=== PATIENT | female | born 1995 | race Caucasian/White ===

== ENCOUNTER 2019-03-30 23:33 | Inpatient (IN) | payer OTHER, MEDICAID, SELFPAY ==
[2019-03-30 23:44] VITALS: BP 127/80; PULSE 106; RESP 16; TEMP 36.6; O2SAT 95; BMI 18.9
--- NOTE | 2019-03-30 23:45 | ED.NAVMDI ---
HPI - Nausea/Vomiting/Diarrhea General Chief complaint: Nausea/Vomiting/Diarrhea Stated complaint: dehydrated, very little fluids for 3 days Time Seen by Provider: 03/30/19 23:39 Source: patient Mode of arrival: Ambulatory Limitations: no limitations History of Present Illness HPI Narrative: Patient is a 23-year-old female with history of ulcerative colitis and a J loop presenting with 3 days of nausea. She denies any real abdominal pain but can't keep fluids down. She can drink water but about 4 hours later she has vomits it up. She denies any abdominal distention she feels sweaty at times but no chills. She does not remember last bowel movement she thinks she is passing gas. She overall feels very weak noted to be tachycardic. MD complaint: nausea and vomiting Onset (ago): day(s) Description of Diarrhea: none Related Data Allergies Allergy/AdvReac Type Severity Reaction Status Date / Time Penicillins Allergy Verified 03/30/19 23:44 Review of Systems Review of Systems Narrative: GENERAL: Denies chills, fatigue, malaise, fever, sweats, travel HEENT: Denies sinus pain, ear pain, sore throat, difficulty swallowing, neck pain RESPIRATORY: Denies dyspnea, cough, wheezing, hemoptysis, sputum. CARDIOVASCULAR: Denies chest pain, palpitations, orthopnea, edema GASTROINTESTINAL: see HPI : Denies dysuria, frequency, incontinence, hematuria, urinary retention, flank pain. MUSCULOSKELETAL: Denies weakness, joint pain, or bony pain SKIN: No rash, no erythema, no pruritus NEUROLOGIC: Denies weakness, dizziness, headache, numbness, change in speech, confusion PSYCHIATRIC: No concerning psychosocial issues. 12 point review of systems is negative except for those stated above and HPI [facility] Medical History Ulcerative colitis (Acute) Surgical History (Updated 03/31/19 @ 01:56 by THI Resendez) History of colectomy (Acute) Social History household members: friend(s) Smoking Status: Never smoker Social History household members: friend(s) Smoking Status: Never smoker Exam Initial Vital Signs Initial Vital Signs: Vital Signs Temperature 97.8 F 03/30/19 23:44 Pulse Rate 106 H 03/30/19 23:44 Respiratory Rate 16 03/30/19 23:44 Blood Pressure 127/80 03/30/19 23:44 Pulse Oximetry 95 03/30/19 23:44 GENERAL: Week alert young female and in no acute distress. HEENT: Head atraumatic,EOMI, pupils reactive, face symmetric, dry mucous membranes CARDIOVASCULAR: Regular rate and rhythm without murmurs, rubs or gallops. RESPIRATORY: Breath sounds equal bilaterally, no wheezes rales or rhonchi. ABDOMEN: Soft, no distension minimal tenderness no guarding no rebound EXTREMITIES: Normal range of motion, no clubbing or edema. Neurovascularly intact NEUROLOGICAL: Alert and oriented x4.Normal gait and speech. Cranial nerves II through XII grossly intact. SKIN: Warm, dry, no laceration, no petechiae, no rashes or lesions. Course Orders Ordered: ED Orders 03/30/19 23:50 Complete Blood Count AUTO DIFF Stat Comprehensive Metabolic Panel Stat Lipase Stat Test Serum,Qual Stat 03/30/19 23:52 CT abdomen pelvis w con Stat Enoxaparin Sodium (Lovenox) 40 mg SUBCUT DAILY VINNIE Lactated Ringer's (Lactated Ringers) 1,000 mls @ 125 mls/hr IV CONT VINNIE Morphine Sulfate (Morphine) 2 mg IV Q4HR PRN PRN Reason: Pain, Moderate (4-6) Morphine Sulfate (Morphine) 4 mg IV Q4HR PRN PRN Reason: Pain, Severe (7-10) Naloxone HCl (Narcan) 0.2 mg IV Q2MIN PRN PRN Reason: Opiate Reversal Ondansetron HCl (Zofran) 4 mg IV Q6HR PRN PRN Reason: Nausea And Vomiting Discontinued Medications Sodium Chloride (Normal Saline 0.9%) 1,000 mls @ 1,000 mls/hr IV CONT VINNIE Last Infusion: 03/31/19 01:19 Dose: 0 mls/hr Documented by: Admin: 03/31/19 00:01 Dose: 1,000 mls/hr Documented by: LREED Sodium Chloride (Normal Saline 0.9%) 1,000 mls @ 125 mls/hr IV CONT VINNIE Last Admin: 03/31/19 01:51 Dose: Not Given Documented by: RLODILIAI Morphine Sulfate (Morphine) 4 mg IV NOW ONE Stop: 03/30/19 23:52 Last Admin: 03/31/19 00:00 Dose: 4 mg Documented by: DWIGHT Ondansetron HCl (Zofran) 4 mg IV NOW ONE Stop: 03/30/19 23:52 Last Admin: 03/31/19 00:00 Dose: 4 mg Documented by: DWIGHT Pantoprazole Sodium (Protonix) 40 mg IV NOW ONE Stop: 03/30/19 23:54 Last Admin: 03/31/19 00:00 Dose: 40 mg Documented by: DWIGHT Potassium Chloride (Potassium Chloride) 40 meq PO NOW ONE Stop: 03/31/19 00:50 Last Admin: 03/31/19 00:53 Dose: 40 meq Documented by: MEGA Vital Signs Vital signs: Vital Signs - 8 hr 03/30/19 23:44 03/31/19 00:13 03/31/19 01:12 Temperature 97.8 F Pulse Rate 106 H 87 81 Respiratory Rate 16 16 16 Blood Pressure 127/80 Blood Pressure [Right Arm] 130/92 H 122/83 Pulse Oximetry 95 95 95 MDM - Nausea/Vomiting/Diarrhea Lab Data Attestation: I reviewed the patient's lab results. Result diagrams: 03/30/19 23:50 03/30/19 23:50 Labs: Lab Results 03/30/19 03/30/19 03/30/19 Range/Units 23:50 23:50 23:50 WBC 12.7 H (4.5-11.0) X10^3/uL RBC 4.72 (4.0-5.2) X10^6/uL Hgb 13.7 (12.0-16.0) g/dL Hct 39.3 (36-46) % MCV 83.3 (80-100) fL MCH 29.1 (26-34) PG MCHC 34.9 (30-36) % RDW 14.7 (11.6-14.8) % Plt Count 700 H (150-400) X10^3/uL Neut % (Auto) 48.3 L (50-75) % Lymph % (Auto) 34.3 (25-40) % [place] % (Auto) 16.6 H (3-14) % Eos % (Auto) 0.1 L (2-4) % Baso % (Auto) 0.7 (0-2) % Neut # (Auto) 6100 (5489-2872) /uL Lymph # (Auto) 4400 (8029-0565) /uL [place] # (Auto) 2100 H (0-900) /uL Eos # (Auto) 0 (0-450) /uL Baso # (Auto) 100 (0-100) /uL Sodium 122 L (137-145) mmol/L Potassium 2.9 L (3.4-5.1) mmol/L Chloride 65 L* (98-107) mmol/L Carbon Dioxide 37 H (22-32) mmol/L BUN 57 H (7-17) mg/dL Creatinine 2.80 H (0.52-1.04) mg/dL Estimated GFR 20.9 L (>60) mL/min BUN/Creatinine Ratio 20.4 (6-22) Glucose 162 H (70-100) mg/dL Calcium 10.2 (8.4-10.2) mg/dL Magnesium (1.6-2.3) mg/dL Total Bilirubin 1.0 (0.2-1.3) mg/dL AST 41 H (14-36) IU/L ALT 33 (9-52) IU/L Alkaline Phosphatase 103 (38-126) U/L Total Protein 9.7 H* (6.3-8.2) g/dL Albumin 5.1 H (3.5-5.0) g/dL Globulin 4.6 H (1.7-4.1) g/dL Albumin/Globulin Ratio 1.1 (1.0-2.8) Lipase 171 (23-300) U/L Serum , Qual Negative (Negative) 03/30/19 Range/Units 23:50 WBC (4.5-11.0) X10^3/uL RBC (4.0-5.2) X10^6/uL Hgb (12.0-16.0) g/dL Hct (36-46) % MCV (80-100) fL MCH (26-34) PG MCHC (30-36) % RDW (11.6-14.8) % Plt Count (150-400) X10^3/uL Neut % (Auto) (50-75) % Lymph % (Auto) (25-40) % [place] % (Auto) (3-14) % Eos % (Auto) (2-4) % Baso % (Auto) (0-2) % Neut # (Auto) (3253-8606) /uL Lymph # (Auto) (2087-5704) /uL [place] # (Auto) (0-900) /uL Eos # (Auto) (0-450) /uL Baso # (Auto) (0-100) /uL Sodium (137-145) mmol/L Potassium (3.4-5.1) mmol/L Chloride (98-107) mmol/L Carbon Dioxide (22-32) mmol/L BUN (7-17) mg/dL Creatinine (0.52-1.04) mg/dL Estimated GFR (>60) mL/min BUN/Creatinine Ratio (6-22) Glucose (70-100) mg/dL Calcium (8.4-10.2) mg/dL Magnesium 2.6 H (1.6-2.3) mg/dL Total Bilirubin (0.2-1.3) mg/dL AST (14-36) IU/L ALT (9-52) IU/L Alkaline Phosphatase (38-126) U/L Total Protein (6.3-8.2) g/dL Albumin (3.5-5.0) g/dL Globulin (1.7-4.1) g/dL Albumin/Globulin Ratio (1.0-2.8) Lipase (23-300) U/L Serum , Qual (Negative) Point of Care Testing Test Results Negative Urine Dip Bedside Urine Glucose Negative Bedside Urine Bilirubin + 1 Bedside Urine Ketone - Negative Urine Specific [place] 1.025 Bedside Urine Occult Blood ++ Bedside Urine pH 6 Bedside Urine Protein ++ 100 Bedside Urine Urobilinogen +/- 1mg Bedside Urine Nitrite - Negative Bedside Urine Leukocytes - Negative Esterase MDM Narrative Medical decision making narrative: Patient's electrolytes are abnormal creatinine is 2.8, BUN 57 was significant dehydration. She is no longer vomiting in the ED. She was given IV contrast for her CT, (tech thought gfr was higher). I spoke with Maicol NESS updated on patient's symptoms test results agrees with inpatient admission Discharge Plan Departure Patient Disposition: Admitted As Inpatient Clinical Impression: Acute kidney injury, Acute hyponatremia, Acute hypokalemia Discharge Date/Time: 03/31/19 01:25 Admit Date/Time: 03/31/19 01:12 Admit Provider: Austin Milian
--- NOTE | 2019-03-30 23:52 | DI.CT.S_ITS ---
PROCEDURE: CT ABDOMEN PELVIS W CON INDICATIONS: vomiting , history of J pouch TECHNIQUE: After the administration of intravenous contrast, 5 mm thick sections acquired from the diaphragm to the symphysis. 5 mm coronal and sagittal reformats were acquired. For radiation dose reduction, the following was used: automated exposure control, adjustment of mA and/or kV according to patient size. COMPARISON: [facility], MR, MR ABD PELVIS W&WO CON, 11/18/2016, 12:31. FINDINGS: Image quality: Excellent. ABDOMEN: Lung bases: Lung bases are clear. Heart size is normal. Solid organs: Liver is normal in size and enhancement. Gallbladder is within normal limits. Biliary system is non dilated. Pancreas enhances normally. Spleen is normal in size and enhancement. No adrenal nodules. Kidneys demonstrate normal size and enhancement, without hydronephrosis. Peritoneum and bowel: Stomach and proximal small bowel are within normal limits. There is thickening of the distal small bowel just proximal to the J-pouch within the pelvis. No free fluid or air. Nodes and vessels: No retroperitoneal adenopathy. Multiple mildly prominent mesenteric lymph nodes within the pelvis are present. Aorta and inferior vena cava are normal in size. Miscellaneous: No ventral hernias. PELVIS: Genitourinary: Bladder wall thickness is normal. Miscellaneous: No inguinal hernias or adenopathy. Bones: No suspicious bony lesions. No vertebral body compression fractures. IMPRESSION: Distal small bowel thickening within the pelvis, indicating ischemia, infection or inflammation. Reactive mesenteric lymph node enlargement is present. Concordant with preliminary interpretation. Dictated by: Mahnaz Mckeon M.D. on 03/31/2019 at 8:27 Approved by: Mahnaz Mckeon M.D. on 03/31/2019 at 8:37
[2019-03-31] VITALS (11 sets, daily range): BP systolic 104–142; BP diastolic 59–92; PULSE 73–91; RESP 16–18; TEMP 36.6–37.4; O2SAT 95–100; BMI 18.9
[2019-03-31] LABS: Add Manual Diff / Slide Review NO; Basophils Absolute Auto 100 /uL (0-100); Basophils Percent Auto 0.7 % (0-2); Eosinophils Absolute Auto 0 /uL (0-450); Eosinophils Percent Auto 0.1 % (2-4); Hematocrit 39.3 % (36-46); Hemoglobin 13.7 g/dL (12.0-16.0); Lymphocytes Absolute Auto 4400 /uL (1100-4500); Lymphocytes Percent Auto 34.3 % (25-40); Mean Corpuscular HGB Conc 34.9 % (30-36); Mean Corpuscular Hemoglobin 29.1 PG (26-34); Mean Corpuscular Volume 83.3 fL (80-100); Monocytes Absolute Auto 2100 /uL (0-900); Monocytes Percent Auto 16.6 % (3-14); Neutrophils Absolute Auto 6100 /uL (1500-7000); Neutrophils Percent Auto 48.3 % (50-75); Platelet Count 700 X10^3/uL (150-400); Red Blood Cell Count 4.72 X10^6/uL (4.0-5.2); Red Cell Distribution Width 14.7 % (11.6-14.8); White Blood Cell Count 12.7 X10^3/uL (4.5-11.0)
[2019-03-31] MEDS: MORPHINE 4 MG/ML INJ IV
[2019-03-31] MEDS: ONDANSETRON 4 MG/2 ML INJ IV
[2019-03-31] MEDS: PANTOPRAZOLE 40 MG VIAL IV
[2019-03-31] MEDS: SODIUM CHLORIDE 0.9% 1,000 ML 1000 ML IV (00:01)
[2019-03-31 00:10] LABS: Pregnancy Test Serum,Qual Negative (Negative)
[2019-03-31 00:14] LABS: Alanine Aminotransferase 33 IU/L (9-52); Albumin 5.1 g/dL (3.5-5.0); Albumin Globulin Ratio 1.1 (1.0-2.8); Alkaline Phosphatase 103 U/L (38-126); Aspartate Aminotransferase 41 IU/L (14-36); BUN Creatinine Ratio 20.4 (6-22); Blood Urea Nitrogen 57 mg/dL (7-17); Calcium 10.2 mg/dL (8.4-10.2); Carbon Dioxide 37 mmol/L (22-32); Estimated Glomerular Filt Rate 20.9 mL/min (>60); Globulin 4.6 g/dL (1.7-4.1); Glucose 162 mg/dL (70-100); HEMOLYSIS < 15 (0-50); Lipase 171 U/L (23-300); Potassium 2.9 mmol/L (3.4-5.1); Sodium 122 mmol/L (137-145)
[2019-03-31 00:38] LABS: Chloride 65 mmol/L (98-107)
[2019-03-31 00:39] LABS: Total Protein 9.7 g/dL (6.3-8.2)
--- NOTE | 2019-03-31 00:44 | PC.NURSE ---
Patient resting quietly in room. Friends at bedside. patient able to drift off to sleep.
[2019-03-31] MEDS: POTASSIUM CHLORIDE 20 MEQ/15 ML UDC 40 MEQ PO (00:53)
[2019-03-31 01:33] LABS: Magnesium 2.6 mg/dL (1.6-2.3)
--- NOTE | 2019-03-31 01:42 | P.HP_ITS ---
History of Present Illness History of Present Illness Date Patient Seen: 03/31/19 Time Patient Seen: 01:42 Chief complaint: dehydrated, very little fluids for 3 days Narrative: Ms. Deepika Stroud is a 23-year-old female with history of ulcerative colitis status post colectomy with J-pouch reconstruction who presents to the ER with severe dehydration the patient reports having 3 days of nausea and vomiting and has been unable to keep food or fluids down. She describes her emesis is greenish in color without blood. She has associated diarrhea and states that s he has this frequently with her J-pouch reporting stooling approximately 5-8 times daily. She has associated symptoms of weakness and also has had complaints of a cough productive for green sputum with runny nose and sore throat. She denies recent sick contacts, travel out of country or questionable food or water sources. She denies complaints of fevers or chills headaches or dizziness. She denies chest pain or palpitations has had no shortness of breath or wheezing. She reports no abdominal pain or complaints of dysuria. She provides distal history of intermittent numbness and tingling and also has a history of PTSD for which she takes fluoxetine. Upon arrival in the ER the patient was found to be afebrile with temperature 97.8?, tachycardic at 1:06 a.m., blood pressure 127/80, respirations 16 saturating 95% on room air. On laboratory analysis the patient has with elevated white count of 12.7, hemoglobin of 13.7 hematocrit of 39.3 and platelets of 700. On chemistry she is hyponatremic at 1:22 a.m., hypokalemic at 2.9, chloride is low at 65 and alkalotic with a CO of 37. She has a BUN of 57 and creatinine of 2.8. Her nonfasting glucose is 162. The patient did undergo CT scan and unfortunately the patient did receive contrast with impaired renal function with an EGFR of 20.9. The exam found no significant pathology other than thickening of the patient's J-pouch. She has a total bilirubin of 1.0 and elevated AST at 41. Her lipase normal 171 and serum is negative. Patient History Medical History Ulcerative colitis (Acute) Surgical History (Updated 03/31/19 @ 01:56 by Austin Maicol, RESORT MANAGER) History of colectomy (Acute) Social History household members: friend(s) Smoking Status: Never smoker Family & Social History Family history unavailable: Yes (Patient is adopted and has no knowledge of her biological family.) Safety & Behavioral: Feels Safe in Current Yes Environment Been Physically Hurt or No Threatened By a Person Tobacco & Substance use: Smoking Status Unknown if ever smoked alcohol intake frequency holiday/special occasion Substance Use Type does not use Comment: The patient is currently and lives in a single family home with friends. She is adopted and has no knowledge of her parents or family health history. Occupation: The patient does not work. Smoking: The patient does not use tobacco products. Alcohol: The patient does not consume alcohol. Substance use: The patient endorses smoking marijuana 3 times daily. Advanced directives: Patient has no formal advanced directives but in direct discussion states her desire to be FULL CODE. She designates her friend Christi Mccormick to be her surrogate decision maker. Meds Home Medications and Allergies Home Medications Medication Instructions Recorded Confirmed Type fluoxetine 10 mg PO DAILY 03/31/19 03/31/19 History Allergies Allergy/AdvReac Type Severity Reaction Status Date / Time Penicillins Allergy Verified 03/30/19 23:44 Review of Systems Review of Systems ROS Unobtainable: All systems reviewed & are unremarkable except as noted in HPI and below Exam Vital Signs (past 8 hours): - 03/30/19 23:44 03/31/19 00:13 03/31/19 01:12 Temperature 97.8 F Pulse Rate 106 H 87 81 Respiratory Rate 16 16 16 Blood Pressure 127/80 Blood Pressure [Right Arm] 130/92 H 122/83 Pulse Oximetry 95 95 95 Oxygen Delivery Method Room Air Narrative Exam Narrative: GENERAL APPEARANCE: well developed, well nourished, laying supine in bed in no acute distress. HEENT: Normocephalic, wearing glasses, PERRLA, conjunctiva clear, EOMs intact without nystagmus, no sinus tenderness to percussion, no rhinorrhea, mucous membranes are moist and pink without lesions or exudate. NECK/THYROID: neck supple, no JVD,no thyromegaly, trachea midline. LYMPH NODES: no cervical or supraclavicular lymphadenopathy. SKIN: warm and dry, no suspicious lesions, no rashes, good turgor. HEART: regular rate and rhythm, S1-S2, no murmur, no rubs or gallops, brisk capillary refill, no edema LUNGS: clear to auscultation bilaterally, no coarseness crackles or wheezing, went cough present CHEST: Symmetrical movement, no accessory muscle use, mild nonfocal chest wall pain to AP and lateral compression. ABDOMEN: Soft, no distention, patient states no pain but slight grimace on palpation bilateral upper quadrants, no guarding or peritoneal signs, no organomegaly, no suprapubic tenderness, active bowel tones. BACK: Normal curvature, nontender to palpation, positive right CVA pain on percussion EXTREMITIES: moves all extremities, strength is 5/5 and symmetrical, no deformities or joint effusions. NEUROLOGIC: AAO x4, no focal neurologic deficits, cranial nerves II-XII grossly intact, sensation intact to light touch, hearing grossly normal to speech. PSYCH: alert, flat affect, impoverished speech, fair eye contact. Objective Labs Result Diagrams: 03/30/19 23:50 03/30/19 23:50 Labs: Laboratory Results - last 24 hr 03/30/19 03/30/19 03/30/19 23:50 23:50 23:50 WBC 12.7 H RBC 4.72 Hgb 13.7 Hct 39.3 MCV 83.3 MCH 29.1 MCHC 34.9 RDW 14.7 Plt Count 700 H Neut % (Auto) 48.3 L Lymph % (Auto) 34.3 [place] % (Auto) 16.6 H Eos % (Auto) 0.1 L Baso % (Auto) 0.7 Neut # (Auto) 6100 Lymph # (Auto) 4400 [place] # (Auto) 2100 H Eos # (Auto) 0 Baso # (Auto) 100 Sodium 122 L Potassium 2.9 L Chloride 65 L* Carbon Dioxide 37 H BUN 57 H Creatinine 2.80 H Estimated GFR 20.9 L BUN/Creatinine Ratio 20.4 Glucose 162 H Calcium 10.2 Magnesium Total Bilirubin 1.0 AST 41 H ALT 33 Alkaline Phosphatase 103 Total Protein 9.7 H* Albumin 5.1 H Globulin 4.6 H Albumin/Globulin Ratio 1.1 Lipase 171 Serum , Qual Negative 03/30/19 23:50 WBC RBC Hgb Hct MCV MCH MCHC RDW Plt Count Neut % (Auto) Lymph % (Auto) [place] % (Auto) Eos % (Auto) Baso % (Auto) Neut # (Auto) Lymph # (Auto) [place] # (Auto) Eos # (Auto) Baso # (Auto) Sodium Potassium Chloride Carbon Dioxide BUN Creatinine Estimated GFR BUN/Creatinine Ratio Glucose Calcium Magnesium 2.6 H Total Bilirubin AST ALT Alkaline Phosphatase Total Protein Albumin Globulin Albumin/Globulin Ratio Lipase Serum , Qual Assessment & Plan Assessment & Plan narrative: This is a 23-year-old female patient who was admitted to the hospital related to severe electrolyte derangement and acute kidney injury. 1. Acute intractable nausea vomiting, present on admission, active. -patient presents with acute dehydration related to intractable nausea vomiting, qSOFA score is 0 mildly elevated WBCs at 12.7. -the patient presents with multiple potential etiologies -Viral syndrome, patient with body aches nausea vomiting cough and sore throat, will obtain a respiratory panel. -intra-abdominal process, CT scan finds circumferential wall thickening of small bowel leading to including portion of the J-pouch. -will obtain procalcitonin and GI PCR. -possible pyelonephritis with acute right CVA tenderness on percussion, obtaining urinalysis. 2. Acute kidney injury, present on admission, active -patient is acutely dehydrated clinically and by laboratory analysis. -no baseline creatinine is available however patient reports no history of kidney problems and presents today with a creatinine of 2.8. -this is believed to be pre renal related to dehydration, patient will be aggressively rehydrated. 3. Acute hyponatremia, present on admission, active -sodium is 122 on admission -likely related to dehydration, will follow sodium level and replete cautiously as the patient is rehydrated. -will follow chemistries closely 4. Acute hypokalemia, present on admission, active -potassium upon arrival to the ER was 2.9. The patient received 40 mEq of potassium p.o. while in the ER. -additional 40 mEq potassium will be given IV -will follow with serial electrolytes. 5. Posttraumatic stress disorder, chronic, presumed stable -patient is somewhat withdrawn with flat affect and a however speech, unwilling to discuss triggers or symptoms. -continue home regimen of fluoxetine 10 mg daily. -patient smokes marijuana 3 times daily, will monitor the patient to assess need for adjunct therapy. The patient is admitted to the hospital due to severity of symptoms and potential for complications adverse repeat events related to electrolyte derangement and acute kidney injury as well as continued investigation for infectious process. Patient will be admitted as an inpatient with expected length of stay to be greater than 2 midnights. Scores GCS [place] coma scale eye opening: Spontaneous [place] coma scale verbal response: Orientated [place] coma scale motor response: Obey commands [place] coma scale total score: 15
[2019-03-31 02:03] LABS: Procalcitonin 0.33 ng/mL (<0.5)
--- NOTE | 2019-03-31 02:14 | PC.ADMIT ---
Addendum entered by Oanh Torres R.N. 03/31/19 03:51: Respiratory panel positive for rhinovirus, per hospital policy pt is put on Droplet Precautions. Original Note: [address] Admission Note: The patient,Annemarie Stroud,23 y/o, was given written information regarding hospital policies, unit procedures and contact persons. Patient's smoking status: Never smoker. Vital Signs - 8 hr 03/30/19 23:44 03/31/19 00:13 03/31/19 01:12 Temperature 97.8 F Pulse Rate 106 H 87 81 Respiratory Rate 16 16 16 Blood Pressure 127/80 Blood Pressure [Right Arm] 130/92 H 122/83 Pulse Oximetry 95 95 95 Pt arrived on floor accompanied by ED RN, sister Christi, and friend Seth. Pt transferred herself to bed, axox3, able to make needs known. VS notable for tachycardia, respiratory for acute productive cough. Skin is intact, sat of 95% on RA. Respiratory panel completed d/t nature of illness and recent cough, also need a U/A and stool sample as well. Pt reports that she occasionally has fecal incontinence and does not pass gas d/t her anatomy r/t j pouch. Pt reports recent 15# weight loss, reflexed dietary consult. Pt is a moderate fall risk, bed alarm on and functioning, pt connected to IV fluids in left hand and SCDs on and functioning. Will continue to monitor.
[2019-03-31] MEDS: LACTATED RINGERS 1,000 ML 125 ML IV (02:19)
[2019-03-31] MEDS: POTASSIUM CHLORIDE 40 MEQ in SODIUM CHLORIDE 0.9% 500 ML 130 ML IV (02:28)
[2019-03-31 03:34] LABS: Adenovirus Not Detected (Not Detect); Bordetella pertussis Not Detected (Not Detect); Chlamydophila pneumoniae Not Detected (Not Detect); Coronavirus 229E Not Detected (Not Detect); Coronavirus HKU1 Not Detected (Not Detect); Coronavirus NL 63 Not Detected (Not Detect); Coronavirus OC43 Not Detected (Not Detect); Human Metapneumovirus Not Detected (Not Detect); Human Rhinovirus/Enterovirus Detected (Not Detect); Influenza A Not Detected (Not Detect); Influenza B Not Detected (Not Detect); Mycoplasma pneumoniae Not Detected (Not Detect); Parainfluenza Virus 1 Not Detected (Not Detect); Parainfluenza Virus 2 Not Detected (Not Detect); Parainfluenza Virus 3 Not Detected (Not Detect); Parainfluenza Virus 4 Not Detected (Not Detect); Respiratory Syncytial Virus Not Detected (Not Detect)
[2019-03-31 06:31] LABS: Add Manual Diff / Slide Review NO; Basophils Absolute Auto 0 /uL (0-100); Basophils Percent Auto 0.2 % (0-2); Eosinophils Absolute Auto 0 /uL (0-450); Eosinophils Percent Auto 0.3 % (2-4); Hematocrit 32.2 % (36-46); Hemoglobin 11.4 g/dL (12.0-16.0); Lymphocytes Absolute Auto 3200 /uL (1100-4500); Mean Corpuscular HGB Conc 35.5 % (30-36); Mean Corpuscular Hemoglobin 29.6 PG (26-34); Mean Corpuscular Volume 83.4 fL (80-100); Monocytes Absolute Auto 1700 /uL (0-900); Monocytes Percent Auto 17.1 % (3-14); Neutrophils Absolute Auto 5000 /uL (1500-7000); Neutrophils Percent Auto 50.4 % (50-75); Platelet Count 507 X10^3/uL (150-400); Red Blood Cell Count 3.86 X10^6/uL (4.0-5.2); Red Cell Distribution Width 14.7 % (11.6-14.8)
[2019-03-31 06:33] LABS: BUN Creatinine Ratio 20.9 (6-22); Blood Urea Nitrogen 48 mg/dL (7-17); Carbon Dioxide 36 mmol/L (22-32); Chloride 77 mmol/L (98-107); Estimated Glomerular Filt Rate 26.3 mL/min (>60); Glucose 100 mg/dL (70-100); HEMOLYSIS < 15 (0-50); Potassium 3.7 mmol/L (3.4-5.1); Sodium 126 mmol/L (137-145)
[2019-03-31 06:35] LABS: Appearance Urine UA CLEAR; Bilirubin Urine UA NEGATIVE (NEGATIVE); Color Urine UA YELLOW; Glucose Urine UA NEGATIVE (Negative); Ketones Urine UA NEGATIVE (NEGATIVE); Leukocyte Esterase Urine UA NEGATIVE (NEGATIVE); Nitrite Urine UA NEGATIVE (Negative); Occult Blood Urine UA 2+ (Negative); Protein Urine UA TRACE (Negative); Specific Gravity Urine UA <=1.005 (1.000-1.035); Urobilinogen Urine UA 0.2 E.U./dL (0.2)
[2019-03-31 06:38] LABS: pH Urine UA 7.5 (4.5-8.0)
[2019-03-31 06:41] LABS: Bacteria Urine Few (2-10); Culture Indicated Urine Cult Not Indicated; RBC Urine 0-1/HPF (0-5/HPF); Squamous Epithelial Cell Urine 0-1 /HPF (0-5/HPF); WBC Urine 0-1/HPF (0-5/HPF)
[2019-03-31 06:56] LABS: Procalcitonin 0.21 ng/mL (<0.5)
[2019-03-31] MEDS: LORazepam 0.5 MG TABLET 0.25 MG PO ×2 (07:22→20:49)
[2019-03-31 08:11] LABS: BUN Creatinine Ratio 22.3 (6-22); Blood Urea Nitrogen 49 mg/dL (7-17); Carbon Dioxide 34 mmol/L (22-32); Chloride 78 mmol/L (98-107); Estimated Glomerular Filt Rate 27.7 mL/min (>60); Glucose 100 mg/dL (70-100); HEMOLYSIS 18 (0-50); Potassium 3.8 mmol/L (3.4-5.1); Sodium 126 mmol/L (137-145)
[2019-03-31] MEDS: LACTATED RINGERS 1,000 ML 100 ML IV (10:48)
[2019-03-31] MEDS: FLUoxetine 10 MG CAPSULE PO (10:48)
[2019-03-31] MEDS: CIPROFLOXACIN 400 MG/200 ML PIGGYBACK 200 MG IV ×2 (10:48→17:55)
--- NOTE | 2019-03-31 12:00 | DIET.PN ---
Dietary Progress Note Assessment: Ms. Stroud was assessed as high risk for malnutrition r/t recent N/V and dehydration for the last several days. She reports recent weight loss. She is 2 years S/P colectomy w/ J pouch. Medical records note intake of marijuana approx 3x/day. Reports no dietary restrictions other than low fiber. States she was instructed to follow a high protein/high sodium diet with high intake of junk foods since her surgery. States she eats all sources of animal protein, but diet primarily includes chips of all types, gatorade and other fluids w/ electrolytes. HT: 180.34cm WT: 61kg UBW: 64kg BMI: 18.8 Labs: Hgb: 11.4 Hct: 32.2 Na: 126 K: 2.9 Cr: 2.2 eGFR: 27.7 Alb: 5.1 MNA: 4 (malnutrition) [place]: 19 Nutrition Diagnosis: Severe acute malnutrition r/t alteration in GI tract structure aeb GI symptoms N/V >1 week, energy intake <50% >5 days, unintentional weight loss of 4.7% (reports 15 lb weight loss) in >1 mo, excessive consumption of substance (marijuana), alterations in GI structure effecting nutrition intake. Interventions: 1. Discussed pt normal dietary intake. Recommended pt aim to increase fluid intake from less caloric dense beverages and decrease junk food consumption. 2. Discussed low fiber nutrition therapy. Provided list of foods to avoid, moderate, and increase. 3. Discussed slowly increasing fiber intake by incorporating small amounts of fruits/vegetable into meal plan. Diet Order: Clear Liquid Monitoring/Evaluations: Wt, Diet advancement/tolerance. Provided resources and my contact information for any immediate questions or concerns.
[2019-03-31 13:11] LABS: Adenovirus F 40/41 Not Detected (Not Detect); Astrovirus Not Detected (Not Detect); Campylobacter Not Detected (Not Detect); Clostridium difficile toxin AB Not Detected (Not Detect); Cryptosporidium Not Detected (Not Detect); Cyclospora cayetanensis Not Detected (Not Detect); Entamoeba histolytica Not Detected (Not Detect); Enteroaggregative E.coli Not Detected (Not Detect); Enteropathogenic E.coli Detected (Not Detect); Enterotoxigenic E.coli It/st Not Detected (Not Detect); Giardia lamblia Not Detected (Not Detect); Norovirus GI/GII Not Detected (Not Detect); Plesiomonsa shigelloides Not Detected (Not Detect); Rotavirus A Not Detected (Not Detect); Salmonella Not Detected (Not Detect); Shiga-like toxin-prod E.coli Not Detected (Not Detect); Shigella/Enteroinvasive E.coli Not Detected (Not Detect); Vibrio Not Detected (Not Detect); Vibrio cholerae Not Detected (Not Detect); Yersinia enterocolitica Not Detected (Not Detect)
[2019-03-31] MEDS: SODIUM CHLORIDE 0.9% 1,000 ML 75 ML IV (17:55)
--- NOTE | 2019-03-31 19:54 | P.PN_ITS ---
Subjective Subjective Date Patient Seen: 03/31/19 Time Patient Seen: 11:00 Interval history: Patient was seen and evaluated today. I agree with H&P by THI Resendez. She is admitted with hyponatremia and hypokalemia. Her hyponatremia improved today slightly to 126 and her creatinine improved as well to 2.3. Her GI panel came back positive for EPEC, she was started on Cipro for possible urinary source however her urine was negative. However Cipro can be used for severe cases of EPEC requiring hospitalization for volume depletion as this patient had. She will remain on ciprofloxacin for a 3-5 day course depending on how her symptoms improve. Her sodium is correcting appropriately and will continue follow. She stopped improving on LR, and was switched to normal saline this afternoon. Exam Vital Signs (past 8 hours): - 03/31/19 12:00 03/31/19 15:55 03/31/19 18:52 Temperature 97.9 F 98.8 F Pulse Rate 75 78 Respiratory Rate 16 18 Blood Pressure 127/87 113/69 Pulse Oximetry 99 98 98 Oxygen Delivery Method Room Air Oxygen Flow Rate 0 Objective Labs Result Diagrams: 03/31/19 06:10 03/31/19 06:10 Labs: Laboratory Results - last 24 hr 03/30/19 03/30/19 03/30/19 00:50 23:50 23:50 WBC 12.7 H RBC 4.72 Hgb 13.7 Hct 39.3 MCV 83.3 MCH 29.1 MCHC 34.9 RDW 14.7 Plt Count 700 H Neut % (Auto) 48.3 L Lymph % (Auto) 34.3 [place] % (Auto) 16.6 H Eos % (Auto) 0.1 L Baso % (Auto) 0.7 Neut # (Auto) 6100 Lymph # (Auto) 4400 [place] # (Auto) 2100 H Eos # (Auto) 0 Baso # (Auto) 100 Sodium Potassium Chloride Carbon Dioxide BUN Creatinine Estimated GFR BUN/Creatinine Ratio Glucose Calcium Magnesium Total Bilirubin AST ALT Alkaline Phosphatase Total Protein Albumin Globulin Albumin/Globulin Ratio Lipase Procalcitonin 0.33 Serum , Qual Negative Urine Color Urine Appearance Urine pH Ur Specific [place] Urine Protein Urine Glucose (UA) Urine Ketones Urine Occult Blood Urine Nitrate Urine Bilirubin Urine Urobilinogen Ur Leukocyte Esterase Urine RBC Urine WBC Ur Squamous Epith Cells Urine Bacteria Ur Culture Indicated? Stl C. cayetanensis PCR Stool Rotavirus (PCR) Stool Adenovirus (PCR) Stool Astrovirus (PCR) Stool Cryptosporidium PCR Stl E.coli Shiga Tox PCR St Sh/Enteroin Ecoli PCR Stool E coli O157 PCR Stl Enterotoxigenic E PCR Stool EPEC (PCR) Stl E. histolytica PCR Stool Giardia Lamblia PCR Stl P. shigelloides PCR St Y.enterocolitica PCR Stool Vibrio (PCR) Stl Vibrio cholerae PCR Stl Enteroaggr Ecoli PCR Stl Norovirus GI/GII PCR Chlamy pneumoniae PCR Adenovirus (PCR) B.parapertussis DNA PCR Campylobacter (PCR) C. difficile Tox (PCR) Coronavirus OC43 (PCR) Coronavirus HKU1 (PCR) Coronavirus 229E (PCR) Coronavirus NL63 (PCR) Human Metapneumovir PCR Influenza Type A (PCR) Influenza Type B (PCR) M. pneumoniae (PCR) Parainfluenza 1 (PCR) Parainfluenza 2 (PCR) Parainfluenza 3 (PCR) Parainfluenza 4 (PCR) RSV (PCR) Entero/Rhino (PCR) Salmonella (PCR) 03/30/19 03/30/19 03/31/19 23:50 23:50 02:07 WBC RBC Hgb Hct MCV MCH MCHC RDW Plt Count Neut % (Auto) Lymph % (Auto) [place] % (Auto) Eos % (Auto) Baso % (Auto) Neut # (Auto) Lymph # (Auto) [place] # (Auto) Eos # (Auto) Baso # (Auto) Sodium 122 L Potassium 2.9 L Chloride 65 L* Carbon Dioxide 37 H BUN 57 H Creatinine 2.80 H Estimated GFR 20.9 L BUN/Creatinine Ratio 20.4 Glucose 162 H Calcium 10.2 Magnesium 2.6 H Total Bilirubin 1.0 AST 41 H ALT 33 Alkaline Phosphatase 103 Total Protein 9.7 H* Albumin 5.1 H Globulin 4.6 H Albumin/Globulin Ratio 1.1 Lipase 171 Procalcitonin Serum , Qual Urine Color Urine Appearance Urine pH Ur Specific [place] Urine Protein Urine Glucose (UA) Urine Ketones Urine Occult Blood Urine Nitrate Urine Bilirubin Urine Urobilinogen Ur Leukocyte Esterase Urine RBC Urine WBC Ur Squamous Epith Cells Urine Bacteria Ur Culture Indicated? Stl C. cayetanensis PCR Stool Rotavirus (PCR) Stool Adenovirus (PCR) Stool Astrovirus (PCR) Stool Cryptosporidium PCR Stl E.coli Shiga Tox PCR St Sh/Enteroin Ecoli PCR Stool E coli O157 PCR Stl Enterotoxigenic E PCR Stool EPEC (PCR) Stl E. histolytica PCR Stool Giardia Lamblia PCR Stl P. shigelloides PCR St Y.enterocolitica PCR Stool Vibrio (PCR) Stl Vibrio cholerae PCR Stl Enteroaggr Ecoli PCR Stl Norovirus GI/GII PCR Chlamy pneumoniae PCR Not detected Adenovirus (PCR) Not detected B.parapertussis DNA PCR Not detected Campylobacter (PCR) C. difficile Tox (PCR) Coronavirus OC43 (PCR) Not detected Coronavirus HKU1 (PCR) Not detected Coronavirus 229E (PCR) Not detected Coronavirus NL63 (PCR) Not detected Human Metapneumovir PCR Not detected Influenza Type A (PCR) Not detected Influenza Type B (PCR) Not detected M. pneumoniae (PCR) Not detected Parainfluenza 1 (PCR) Not detected Parainfluenza 2 (PCR) Not detected Parainfluenza 3 (PCR) Not detected Parainfluenza 4 (PCR) Not detected RSV (PCR) Not detected Entero/Rhino (PCR) Detected H Salmonella (PCR) 03/31/19 03/31/19 03/31/19 06:10 06:10 06:10 WBC 10.0 RBC 3.86 L Hgb 11.4 L Hct 32.2 L MCV 83.4 MCH 29.6 MCHC 35.5 RDW 14.7 Plt Count 507 H Neut % (Auto) 50.4 Lymph % (Auto) 32.0 [place] % (Auto) 17.1 H Eos % (Auto) 0.3 L Baso % (Auto) 0.2 Neut # (Auto) 5000 Lymph # (Auto) 3200 [place] # (Auto) 1700 H Eos # (Auto) 0 Baso # (Auto) 0 Sodium 126 L Potassium 3.7 Chloride 77 L Carbon Dioxide 36 H BUN 48 H Creatinine 2.30 H Estimated GFR 26.3 L BUN/Creatinine Ratio 20.9 Glucose 100 Calcium 9.0 Magnesium Total Bilirubin AST ALT Alkaline Phosphatase Total Protein Albumin Globulin Albumin/Globulin Ratio Lipase Procalcitonin 0.21 Serum , Qual Urine Color Urine Appearance Urine pH Ur Specific [place] Urine Protein Urine Glucose (UA) Urine Ketones Urine Occult Blood Urine Nitrate Urine Bilirubin Urine Urobilinogen Ur Leukocyte Esterase Urine RBC Urine WBC Ur Squamous Epith Cells Urine Bacteria Ur Culture Indicated? Stl C. cayetanensis PCR Stool Rotavirus (PCR) Stool Adenovirus (PCR) Stool Astrovirus (PCR) Stool Cryptosporidium PCR Stl E.coli Shiga Tox PCR St Sh/Enteroin Ecoli PCR Stool E coli O157 PCR Stl Enterotoxigenic E PCR Stool EPEC (PCR) Stl E. histolytica PCR Stool Giardia Lamblia PCR Stl P. shigelloides PCR St Y.enterocolitica PCR Stool Vibrio (PCR) Stl Vibrio cholerae PCR Stl Enteroaggr Ecoli PCR Stl Norovirus GI/GII PCR Chlamy pneumoniae PCR Adenovirus (PCR) B.parapertussis DNA PCR Campylobacter (PCR) C. difficile Tox (PCR) Coronavirus OC43 (PCR) Coronavirus HKU1 (PCR) Coronavirus 229E (PCR) Coronavirus NL63 (PCR) Human Metapneumovir PCR Influenza Type A (PCR) Influenza Type B (PCR) M. pneumoniae (PCR) Parainfluenza 1 (PCR) Parainfluenza 2 (PCR) Parainfluenza 3 (PCR) Parainfluenza 4 (PCR) RSV (PCR) Entero/Rhino (PCR) Salmonella (PCR) 03/31/19 03/31/19 03/31/19 06:10 06:20 11:46 WBC RBC Hgb Hct MCV MCH MCHC RDW Plt Count Neut % (Auto) Lymph % (Auto) [place] % (Auto) Eos % (Auto) Baso % (Auto) Neut # (Auto) Lymph # (Auto) [place] # (Auto) Eos # (Auto) Baso # (Auto) Sodium 126 L Potassium 3.8 Chloride 78 L Carbon Dioxide 34 H BUN 49 H Creatinine 2.20 H Estimated GFR 27.7 L BUN/Creatinine Ratio 22.3 H Glucose 100 Calcium 9.0 Magnesium Total Bilirubin AST ALT Alkaline Phosphatase Total Protein Albumin Globulin Albumin/Globulin Ratio Lipase Procalcitonin Serum , Qual Urine Color Yellow Urine Appearance Clear Urine pH 7.5 Ur Specific [place] <=1.005 Urine Protein Trace H Urine Glucose (UA) Negative Urine Ketones Negative Urine Occult Blood 2+ H Urine Nitrate Negative Urine Bilirubin Negative Urine Urobilinogen 0.2 Ur Leukocyte Esterase Negative Urine RBC 0-1/hpf Urine WBC 0-1/hpf Ur Squamous Epith Cells 0-1 /hpf Urine Bacteria Few (2-10) H Ur Culture Indicated? Cult not indicated Stl C. cayetanensis PCR Not detected Stool Rotavirus (PCR) Not detected Stool Adenovirus (PCR) Not detected Stool Astrovirus (PCR) Not detected Stool Cryptosporidium PCR Not detected Stl E.coli Shiga Tox PCR Not detected St Sh/Enteroin Ecoli PCR Not detected Stool E coli O157 PCR Not detected Stl Enterotoxigenic E PCR Not detected Stool EPEC (PCR) Detected H Stl E. histolytica PCR Not detected Stool Giardia Lamblia PCR Not detected Stl P. shigelloides PCR Not detected St Y.enterocolitica PCR Not detected Stool Vibrio (PCR) Not detected Stl Vibrio cholerae PCR Not detected Stl Enteroaggr Ecoli PCR Not detected Stl Norovirus GI/GII PCR Not detected Chlamy pneumoniae PCR Adenovirus (PCR) B.parapertussis DNA PCR Campylobacter (PCR) Not detected C. difficile Tox (PCR) Not detected Coronavirus OC43 (PCR) Coronavirus HKU1 (PCR) Coronavirus 229E (PCR) Coronavirus NL63 (PCR) Human Metapneumovir PCR Influenza Type A (PCR) Influenza Type B (PCR) M. pneumoniae (PCR) Parainfluenza 1 (PCR) Parainfluenza 2 (PCR) Parainfluenza 3 (PCR) Parainfluenza 4 (PCR) RSV (PCR) Entero/Rhino (PCR) Salmonella (PCR) Not detected Quality VTE Deep Vein Thrombosis/Pulmonary Embolism Present on Admission: No
[2019-04-01] VITALS (8 sets, daily range): BP systolic 107–113; BP diastolic 53–75; PULSE 75–96; RESP 14–18; TEMP 36.5–37.3; O2SAT 95–100
[2019-04-01 05:35] LABS: Add Manual Diff / Slide Review NO; Basophils Absolute Auto 0 /uL (0-100); Basophils Percent Auto 0.4 % (0-2); Eosinophils Absolute Auto 0 /uL (0-450); Eosinophils Percent Auto 0.4 % (2-4); Hematocrit 32.6 % (36-46); Hemoglobin 11.3 g/dL (12.0-16.0); Lymphocytes Absolute Auto 3800 /uL (1100-4500); Lymphocytes Percent Auto 43.3 % (25-40); Mean Corpuscular HGB Conc 34.6 % (30-36); Mean Corpuscular Hemoglobin 29.2 PG (26-34); Mean Corpuscular Volume 84.6 fL (80-100); Monocytes Absolute Auto 1200 /uL (0-900); Monocytes Percent Auto 13.6 % (3-14); Neutrophils Absolute Auto 3700 /uL (1500-7000); Neutrophils Percent Auto 42.3 % (50-75); Platelet Count 461 X10^3/uL (150-400); Red Blood Cell Count 3.86 X10^6/uL (4.0-5.2); White Blood Cell Count 8.8 X10^3/uL (4.5-11.0)
[2019-04-01 05:53] LABS: Alanine Aminotransferase 28 IU/L (9-52); Albumin 4.1 g/dL (3.5-5.0); Albumin Globulin Ratio 1.3 (1.0-2.8); Alkaline Phosphatase 62 U/L (38-126); Aspartate Aminotransferase 29 IU/L (14-36); BUN Creatinine Ratio 14.3 (6-22); Bilirubin Total 0.5 mg/dL (0.2-1.3); Blood Urea Nitrogen 20 mg/dL (7-17); Calcium 9.1 mg/dL (8.4-10.2); Carbon Dioxide 35 mmol/L (22-32); Chloride 84 mmol/L (98-107); Estimated Glomerular Filt Rate 46.6 mL/min (>60); Globulin 3.2 g/dL (1.7-4.1); Glucose 95 mg/dL (70-100); HEMOLYSIS < 15 (0-50); Sodium 131 mmol/L (137-145); Total Protein 7.3 g/dL (6.3-8.2)
[2019-04-01] MEDS: LORazepam 0.5 MG TABLET 0.25 MG PO ×3 (05:55→21:40)
[2019-04-01] MEDS: CIPROFLOXACIN 400 MG/200 ML PIGGYBACK 200 MG IV ×2 (05:55→17:45)
[2019-04-01 06:06] LABS: Potassium 2.6 mmol/L (3.4-5.1)
--- NOTE | 2019-04-01 06:08 | PC.NURSE ---
Lab called with critical value, potassium 2.6, [employer] notified, new orders placed.
[2019-04-01] MEDS: POTASSIUM CHLORIDE 20 MEQ/15 ML UDC 40 MEQ PO (06:33)
[2019-04-01] MEDS: POTASSIUM CHLORIDE 40 MEQ in SODIUM CHLORIDE 0.9% 500 ML 100 ML IV (07:01)
[2019-04-01] MEDS: FLUoxetine 10 MG CAPSULE PO (08:11)
[2019-04-01] MEDS: SODIUM CHLORIDE 0.9% 1,000 ML 75 ML IV (08:17)
--- NOTE | 2019-04-01 15:18 | PM.PN.1 ---
Subjective Subjective Date Patient Seen: 04/01/19 Time Patient Seen: 08:50 Interval history: Ms. Deepika Stroud is a 23-year-old female with history of ulcerative colitis status post colectomy with J-pouch reconstruction who presented to the ER with severe dehydration the patient reports having 3 days of nausea and vomiting and has been unable to keep food or fluids down and was admitted with hyponatremia and hypokalemia. Her hypernatremia improved to 131 today however her potassium went low to 2.6, her magnesium level was normal at 2. Her creatinine also improved to 1.4 and overall she feels improved but was still not able to tolerate much p.o. intake. We will advance her to a regular diet today. She denies any dizziness or vision changes, but she reports a mild headache and mild and improved nausea. Her GI panel was positive for EPEC and she is continued on Cipro for this. Exam Vital Signs (past 8 hours): - 04/01/19 08:00 04/01/19 08:30 Temperature 98.7 F Pulse Rate 78 Respiratory Rate 14 Blood Pressure 113/56 L Pulse Oximetry 95 97 Oxygen Delivery Method Room Air Oxygen Flow Rate 0 Narrative Exam Narrative: GENERAL APPEARANCE: Well developed, well nourished, in no acute distress. SKIN: Inspection of the skin reveals no rashes, ulcerations or petechiae. HEENT: The sclerae were anicteric and conjunctivae were pink and moist. Extraocular movements were intact and pupils were equal, round with normal accommodation. External inspection of the ears and nose showed no scars, lesions, or masses. Lips, teeth, and gums showed normal mucosa. The oral mucosa, hard and soft palate, tongue and posterior pharynx were unremarkable. NECK: Supple and symmetric. There was no thyroid enlargement, and no tenderness, or masses were felt. CHEST: Normal AP diameter and normal contour without any kyphoscoliosis. LUNGS: Auscultation of the lungs revealed no wheezes, rhonchi, or rales. CARDIOVASCULAR: There was a regular rate and rhythm without any murmurs, gallops, rubs. Peripheral pulses were 2+ and symmetric. ABDOMEN: Soft, mild epigastric tenderness with normal bowel sounds. No ascites was noted. MUSCULOSKELETAL: There was no tenderness or effusions noted. Muscle strength and tone were normal. EXTREMITIES: No cyanosis, clubbing or edema. NEUROLOGIC: Alert and oriented x 3. Normal affect. Gait was normal. Strength is +5/5 in the Upper Extremities and Lower Extremities Bilaterally. Sensation to touch was normal. Objective Labs Result Diagrams: 04/01/19 05:18 04/01/19 05:18 Labs: Laboratory Results - last 24 hr 04/01/19 04/01/19 04/01/19 05:18 05:18 11:20 WBC 8.8 RBC 3.86 L Hgb 11.3 L Hct 32.6 L MCV 84.6 MCH 29.2 MCHC 34.6 RDW 15.0 H Plt Count 461 H Neut % (Auto) 42.3 L Lymph % (Auto) 43.3 H [place] % (Auto) 13.6 Eos % (Auto) 0.4 L Baso % (Auto) 0.4 Neut # (Auto) 3700 Lymph # (Auto) 3800 [place] # (Auto) 1200 H Eos # (Auto) 0 Baso # (Auto) 0 Sodium 131 L Potassium 2.6 L* D Chloride 84 L Carbon Dioxide 35 H BUN 20 H Creatinine 1.40 H Estimated GFR 46.6 L BUN/Creatinine Ratio 14.3 Glucose 95 Calcium 9.1 Magnesium 2.0 Total Bilirubin 0.5 AST 29 ALT 28 Alkaline Phosphatase 62 Total Protein 7.3 Albumin 4.1 Globulin 3.2 Albumin/Globulin Ratio 1.3 Assessment & Plan Assessment & Plan narrative: This is a 23-year-old female patient with a past medical history of ulcerative colitis status post colectomy with J pouch who was admitted to the hospital related to severe electrolyte derangement and acute kidney injury. 1. Acute intractable nausea vomiting, present on admission, active. -infectious etiology likely secondary to EPEC found on GI panel. She continues on ciprofloxacin for a 3-5 day treatment depending on how she is responding . We are advancing her to a regular diet today. - continue ciprofloxacin for 3-5 day course pending symptom relief. 2. Acute kidney injury, present on admission, active -2nd to severe volume depletion from above infectious etiology. Her creatinine has improved to 1.4 today. -this is believed to be pre renal related to dehydration, patient will be aggressively rehydrated given hyponatremia. - continue to monitor Cr. 3. Acute hyponatremia, present on admission, active, improving - -sodium is 122 on admission, now improved appropriately to 131. -likely related to dehydration, will follow sodium level and replete cautiously as the patient is rehydrated. -will follow chemistries closely -will discontinue fluids today and restart diet. 4. Acute hypokalemia, present on admission, active -potassium upon arrival to the ER was 2.9. The patient received 40 mEq of potassium p.o. while in the ER. This improved briefly but her potassium was 2.6 this morning likely secondary to liquid diet and continued fluids. -additional 40 mEq potassium will be given PO. -will follow with serial electrolytes. -magnesium was within normal limits. 5. Posttraumatic stress disorder, chronic, presumed stable -patient is somewhat withdrawn with flat affect and a however speech, unwilling to discuss triggers or symptoms. -continue home regimen of fluoxetine 10 mg daily. -patient smokes marijuana 3 times daily, will monitor the patient to assess need for adjunct therapy. Code: full Dispo: Possible discharge tomorrow if tolerating diet and electrolyte abnormalities have improved. Quality VTE Deep Vein Thrombosis/Pulmonary Embolism Present on Admission: No
--- NOTE | 2019-04-01 15:51 | CM.DANOTE ---
Discharge Planning/Care Management DCP: assessment: case received, EMR reviewed and met this morning 0800 with pt and a male friend, rooming in. Introduced self and role. Pt is a 23 year old female who admitted yesterday to care of hospitalist team. DROPLET PRECAUTIONS: noted; pt is + enteric rhino virus and + EPEC. Pt carries diagnosis of Crohn's Disease Pt confirms she lives in [place] with a friend. Her marital status indicates: . Her spouse Gurdeep Dupree is listed as a contact on her face sheet. She says she has not yet decided if she wants this removed. Payer: [employer]/ Medicaid. Admission status: INPT: confirmed by [facility] SOHAM Pelaez. Dr. Cade stated that pt would advance to a regular diet today and, if continued to do well tomorrow, may be ok for d/c. Pt was wanting to go back to sleep. Assured her that the DCPlanning team would be available if need be for any d/c planning needs. None are identified thus far.. CM Discharge Assessment Start: 04/01/19 15:47 Freq: Status: Active Protocol: Document 04/01/19 15:47 ITV (Rec: 04/01/19 15:51 ITV [id number]) Discharge Planning Assessment Advance Directives? No History Provided By Patient,Medical Record Prior Living Arrangements House Household Members friend(s) Independent with ADL's Yes Is patient alert and oriented? Yes Review Status In Process
[2019-04-01] MEDS: POTASSIUM CHLORIDE 20 MEQ/15 ML UDC PO (17:47)
[2019-04-01] MEDS: SODIUM CHLORIDE 0.9% FLUSH 10 ML IV (21:40)
[2019-04-02] MEDS: LORazepam 0.5 MG TABLET 0.25 MG PO (01:48)
--- NOTE | 2019-04-02 01:55 | PC.NURSE ---
Pt c/o increased anxiety and ased for increase in med, provider called and request denied, explained to pt.
[2019-04-02 03:22] VITALS: BP 120/75; PULSE 80; RESP 16; TEMP 37.2; O2SAT 99
[2019-04-02 06:19] LABS: Add Manual Diff / Slide Review NO; Basophils Absolute Auto 100 /uL (0-100); Basophils Percent Auto 0.5 % (0-2); Eosinophils Absolute Auto 200 /uL (0-450); Eosinophils Percent Auto 1.6 % (2-4); Hematocrit 31.5 % (36-46); Hemoglobin 10.9 g/dL (12.0-16.0); Lymphocytes Absolute Auto 4800 /uL (1100-4500); Lymphocytes Percent Auto 41.6 % (25-40); Mean Corpuscular HGB Conc 34.6 % (30-36); Mean Corpuscular Hemoglobin 29.8 PG (26-34); Monocytes Absolute Auto 1000 /uL (0-900); Monocytes Percent Auto 8.3 % (3-14); Neutrophils Absolute Auto 5500 /uL (1500-7000); Platelet Count 502 X10^3/uL (150-400); Red Blood Cell Count 3.66 X10^6/uL (4.0-5.2); Red Cell Distribution Width 14.7 % (11.6-14.8); White Blood Cell Count 11.5 X10^3/uL (4.5-11.0)
[2019-04-02 06:27] LABS: Alanine Aminotransferase 24 IU/L (9-52); Albumin Globulin Ratio 1.3 (1.0-2.8); Alkaline Phosphatase 59 U/L (38-126); Aspartate Aminotransferase 23 IU/L (14-36); BUN Creatinine Ratio 13.6 (6-22); Bilirubin Total 0.3 mg/dL (0.2-1.3); Blood Urea Nitrogen 15 mg/dL (7-17); Carbon Dioxide 27 mmol/L (22-32); Chloride 95 mmol/L (98-107); Estimated Glomerular Filt Rate > 60.0 mL/min (>60); Glucose 124 mg/dL (70-100); HEMOLYSIS < 15 (0-50); Potassium 2.9 mmol/L (3.4-5.1); Sodium 136 mmol/L (137-145)
[2019-04-02] MEDS: CIPROFLOXACIN 400 MG/200 ML PIGGYBACK 200 MG IV (06:35)
[2019-04-02] MEDS: POTASSIUM CHLORIDE 60 MEQ in SODIUM CHLORIDE 0.9% 500 ML 88.333 ML IV (07:56)
[2019-04-02 08:00] VITALS: BP 109/63; PULSE 86; RESP 16; TEMP 37.1; O2SAT 99
[2019-04-02] MEDS: FLUoxetine 10 MG CAPSULE PO (10:05)
[2019-04-02] MEDS: POTASSIUM CHLORIDE 20 MEQ/15 ML UDC PO ×2 (11:12→16:45)
[2019-04-02 13:00] VITALS: BP 114/72; PULSE 74; RESP 16; O2SAT 100
[2019-04-02 14:07] LABS: Blood Urea Nitrogen 13 mg/dL (7-17); Calcium 8.8 mg/dL (8.4-10.2); Carbon Dioxide 27 mmol/L (22-32); Chloride 99 mmol/L (98-107); Estimated Glomerular Filt Rate > 60.0 mL/min (>60); Glucose 94 mg/dL (70-100); HEMOLYSIS < 15 (0-50); Potassium 3.7 mmol/L (3.4-5.1); Sodium 137 mmol/L (137-145)
--- NOTE | 2019-04-02 14:49 | CM.DPC ---
DCP: continued: Dr. Cade reported in Team Rounds today that pt was doing well with her regular diet and that if her labs looked good this afternoon she would be ok to d/c to home setting. No d/c order is yet in...DCP team will follow.
--- NOTE | 2019-04-02 16:20 | P.PN_ITS ---
Subjective Subjective Date Patient Seen: 04/02/19 Time Patient Seen: 16:21 Interval history: Ms. Deepika Stroud is a 23-year-old female with history of ulcerative colitis status post colectomy with J-pouch reconstruction who presented to the ER with severe dehydration the patient reports having 3 days of nausea and vomiting and has been unable to keep food or fluids down and was admitted with hyponatremia and hypokalemia. Her hypernatremia has resoleved today however her potassium has been consistently low. Her creatinine has also improved. She has tolerated a regular diet today. Her potassium this afternoon was improved, however she became more nauseous with meals again. She denied any diarrhea, chest pain, palpitations. Exam Vital Signs (past 8 hours): - 04/02/19 13:00 Pulse Rate 74 Respiratory Rate 16 Blood Pressure 114/72 Pulse Oximetry 100 Oxygen Delivery Method Room Air Oxygen Flow Rate 0 Narrative Exam Narrative: GENERAL APPEARANCE: Well developed, well nourished, in no acute distress. SKIN: Inspection of the skin reveals no rashes, ulcerations or petechiae. HEENT: The sclerae were anicteric and conjunctivae were pink and moist. Extraocular movements were intact and pupils were equal, round with normal accommodation. External inspection of the ears and nose showed no scars, lesions, or masses. Lips, teeth, and gums showed normal mucosa. The oral mucosa, hard and soft palate, tongue and posterior pharynx were unremarkable. NECK: Supple and symmetric. There was no thyroid enlargement, and no tenderness, or masses were felt. CHEST: Normal AP diameter and normal contour without any kyphoscoliosis. LUNGS: Auscultation of the lungs revealed no wheezes, rhonchi, or rales. CARDIOVASCULAR: There was a regular rate and rhythm without any murmurs, gallops, rubs. Peripheral pulses were 2+ and symmetric. ABDOMEN: Soft and nontender with normal bowel sounds. No ascites was noted. MUSCULOSKELETAL: There was no tenderness or effusions noted. Muscle strength and tone were normal. EXTREMITIES: No cyanosis, clubbing or edema. NEUROLOGIC: Alert and oriented x 3. Normal affect. Gait was normal. Strength is +5/5 in the Upper Extremities and Lower Extremities Bilaterally. Sensation to touch was normal. Objective Labs Result Diagrams: 04/02/19 05:25 04/02/19 13:45 Labs: Laboratory Results - last 24 hr 04/02/19 04/02/19 04/02/19 05:25 05:25 13:45 WBC 11.5 H RBC 3.66 L Hgb 10.9 L Hct 31.5 L MCV 86.0 MCH 29.8 MCHC 34.6 RDW 14.7 Plt Count 502 H Neut % (Auto) 48.0 L Lymph % (Auto) 41.6 H [place] % (Auto) 8.3 Eos % (Auto) 1.6 L Baso % (Auto) 0.5 Neut # (Auto) 5500 Lymph # (Auto) 4800 H [place] # (Auto) 1000 H Eos # (Auto) 200 Baso # (Auto) 100 Sodium 136 L 137 Potassium 2.9 L 3.7 Chloride 95 L 99 Carbon Dioxide 27 27 BUN 15 13 Creatinine 1.10 H 1.00 Estimated GFR > 60.0 > 60.0 BUN/Creatinine Ratio 13.6 13.0 Glucose 124 H 94 Calcium 9.0 8.8 Total Bilirubin 0.3 AST 23 ALT 24 Alkaline Phosphatase 59 Total Protein 7.0 Albumin 4.0 Globulin 3.0 Albumin/Globulin Ratio 1.3 Assessment & Plan Assessment & Plan narrative: This is a 23-year-old female patient with a past medical history of ulcerative colitis status post colectomy with J pouch who was admitted to the hospital related to severe electrolyte derangement and acute kidney injury. 1. Acute intractable nausea vomiting, present on admission, active. -infectious etiology likely secondary to EPEC found on GI panel. She continues on ciprofl oxacin for a 3-5 day treatment depending on how she is responding . We have advanced to a regular diet which she was tolerating but this afternoon developed some nausea after lunch. - continue ciprofloxacin for 3-5 day course pending symptom relief. 2. Acute kidney injury, present on admission, active -2nd to severe volume depletion from above infectious etiology. Her creatinine has improved to 1.4 today. -this is believed to be pre renal related to dehydration, patient will be aggressively rehydrated given hyponatremia. - continue to monitor Cr. 3. Acute hyponatremia, present on admission, resolved -sodium is 122 on admission, now improved appropriately to 137. -likely related to dehydration from EPEC as noted above. 4. Acute hypokalemia, present on admission, active -potassium upon arrival to the ER was 2.9. She has been repleted multiple times. K most recently 3.7 but with nausea will start oral replacement (which she has been on before) and ensure that it is stable tomorrow. -magnesium was within normal limits. 5. Posttraumatic stress disorder, chronic, presumed stable -patient is somewhat withdrawn with flat affect and a however speech, unwilling to discuss triggers or symptoms. -continue home regimen of fluoxetine 10 mg daily. -patient smokes marijuana 3 times daily, will monitor the patient to assess need for adjunct therapy. - patient has Rx for 1 mg of ativan for anxiety, will adjust current dosing as she feels anxious today and has been receiving 0.25 mg here. Code: full Dispo: Discharge tomorrow if tolerating diet and potassium stable. Quality VTE Deep Vein Thrombosis/Pulmonary Embolism Present on Admission: No
[2019-04-02 16:34] VITALS: BP 129/85; PULSE 101; RESP 16; TEMP 36.6; O2SAT 95
[2019-04-02] MEDS: LORazepam 1 MG TABLET PO ×2 (16:44→21:12)
[2019-04-02 21:02] VITALS: BP 121/75; PULSE 78; RESP 18; TEMP 36.9; O2SAT 98
[2019-04-02] MEDS: CIPROFLOXACIN 500 MG TABLET PO (22:17)
[2019-04-02 23:23] VITALS: BP 114/74; PULSE 59; RESP 18; TEMP 37.1; O2SAT 100
[2019-04-03] MEDS: LORazepam 1 MG TABLET PO (03:11)
[2019-04-03 05:23] VITALS: BP 109/73; PULSE 96; RESP 18; TEMP 37.1; O2SAT 99
[2019-04-03 05:52] LABS: Add Manual Diff / Slide Review NO; Basophils Absolute Auto 100 /uL (0-100); Basophils Percent Auto 0.7 % (0-2); Eosinophils Absolute Auto 300 /uL (0-450); Eosinophils Percent Auto 2.3 % (2-4); Hematocrit 34.1 % (36-46); Hemoglobin 11.7 g/dL (12.0-16.0); Lymphocytes Absolute Auto 4900 /uL (1100-4500); Lymphocytes Percent Auto 37.4 % (25-40); Mean Corpuscular HGB Conc 34.2 % (30-36); Mean Corpuscular Hemoglobin 29.5 PG (26-34); Mean Corpuscular Volume 86.1 fL (80-100); Monocytes Absolute Auto 1000 /uL (0-900); Monocytes Percent Auto 7.6 % (3-14); Neutrophils Absolute Auto 6800 /uL (1500-7000); Platelet Count 528 X10^3/uL (150-400); Red Blood Cell Count 3.96 X10^6/uL (4.0-5.2); Red Cell Distribution Width 14.5 % (11.6-14.8); White Blood Cell Count 13.1 X10^3/uL (4.5-11.0)
[2019-04-03 09:00] VITALS: BP 103/59; PULSE 78; RESP 14; TEMP 36.6; O2SAT 100; O2SAT 99
[2019-04-03] MEDS: FLUoxetine 10 MG CAPSULE PO (09:17)
[2019-04-03] MEDS: CIPROFLOXACIN 500 MG TABLET PO (09:17)
[2019-04-03] MEDS: POTASSIUM CHLORIDE 20 MEQ/15 ML UDC PO (09:17)
[2019-04-03 10:54] LABS: BUN Creatinine Ratio 11.1 (6-22); Blood Urea Nitrogen 10 mg/dL (7-17); Calcium 9.1 mg/dL (8.4-10.2); Carbon Dioxide 23 mmol/L (22-32); Chloride 104 mmol/L (98-107); Estimated Glomerular Filt Rate > 60.0 mL/min (>60); Glucose 93 mg/dL (70-100); HEMOLYSIS < 15 (0-50); Potassium 3.5 mmol/L (3.4-5.1); Sodium 138 mmol/L (137-145)
--- NOTE | 2019-04-03 13:03 | P.DS_ITS ---
History of Present Illness History of Present Illness Date Patient Seen: 04/03/19 Time Patient Seen: 10:30 Chief complaint: dehydrated, very little fluids for 3 days Narrative: As per THI Resendez: Ms. Deepika Stroud is a 23-year-old female with history of ulcerative colitis status post colectomy with J-pouch reconstruction who presents to the ER with severe dehydration the patient reports having 3 days of nausea and vomiting and has been unable to keep food or fluids down. She describes her emesis is greenish in color without blood. She has associated diarrhea and states that she has this frequently with her J-pouch reporting stooling approximately 5-8 times daily. She has associated symptoms of weakness and also has had complaints of a cough productive for green sputum with runny nose and sore throat. She denies recent sick contacts, travel out of country or questionable food or water sources. She denies complaints of fevers or chills headaches or dizziness. She denies chest pain or palpitations has had no shortness of breath or wheezing. She reports no abdominal pain or complaints of dysuria. She provides distal history of intermittent numbness and tingling and also has a history of PTSD for which she takes fluoxetine. Upon arrival in the ER the patient was found to be afebrile with temperature 97. 8?, tachycardic at 1:06 a.m., blood pressure 127/80, respirations 16 saturating 95% on room air. On laboratory analysis the patient has with elevated white count of 12.7, hemoglobin of 13.7 hematocrit of 39.3 and platelets of 700. On chemistry she is hyponatremic at 1:22 a.m., hypokalemic at 2.9, chloride is low at 65 and alkalotic with a CO of 37. She has a BUN of 57 and creatinine of 2.8. Her nonfasting glucose is 162. The patient did undergo CT scan and unfortunately the patient did receive contrast with impaired renal function with an EGFR of 20.9. The exam found no significant pathology other than thickening of the patient's J-pouch. She has a total bilirubin of 1.0 and elevated AST at 41. Her lipase normal 171 and serum is negative. Discharge Providers Provider Date of admission: 03/31/19 01:12 Discharge Date: 04/03/19 Consults: 03/31/19 01:31 Consult to Dietitian, Adult Routine Comment: Reason For Exam: S/P Colectomy with J-pouch, BMI 19.0 03/31/19 01:49 Consult to Dietitian, Adult Routine Comment: Reason For Exam: Reflexed from admission assessment Discharge provider: Austin Cade DO Summary Hospital Course Discharge Diagnosis: 1. Acute intractable nausea vomiting, present on admission, active. 2. Acute kidney injury, present on admission, Resolved 3. Acute hyponatremia, present on admission, resolved 4. Acute hypokalemia, present on admission, Resolved. 5. Posttraumatic stress disorder, chronic, presumed stable Hospital Course: This is a 23-year-old female patient with a past medical history of ulcerative colitis status post colectomy with J pouch who was admitted to the hospital related to severe electrolyte derangement and acute kidney injury. Her creatinine improved with IV fluids, and her sodium and potassium were both corrected appropriately. 1. Acute intractable nausea vomiting, present on admission, active. -infectious etiology likely secondary to EPEC found on GI panel. She continues on ciprofloxacin for a 5 day treatment. She was tolerating a regular diet at discharge. - continue ciprofloxacin for 5 day total course. 2. Acute kidney injury, present on admission, Resolved- secondary to severe volume depletion from above infectious etiology. Her creatinine has improved to normal upon discharge. 3. Acute hyponatremia, present on admission, resolved -sodium is 122 on admission, now improved appropriately to 137. She was treated with IVF and corrected appropriately. Final Na on discharge was 138. -likely related to dehydration from EPEC as noted above. 4. Acute hypokalemia, present on admission, Resolved. -potassium upon arrival to the ER was 2.9. She has been repleted multiple times. K most recently 3.7 but with nausea will started oral replacement. Repeat was within normal limits at 3.5. Patient was prescribed 20 mEQ of potassium BID upon discharge. - PMD follow up in the next week for hypokalemia. 5. Posttraumatic stress disorder, chronic, presumed stable -patient is somewhat withdrawn with flat affect and a however speech, unwilling to discuss triggers or symptoms but patient stated she is going through a pending divorce. -continue home regimen of fluoxetine 10 mg daily. -patient smokes marijuana 3 times daily, will monitor the patient to assess need for adjunct therapy. -patient has Rx for 1 mg of ativan for anxiety, I have given her a 7 day prescription with 15 pills as she reported she was out and has been dealing with stress from a pending divorce. Status at Discharge Cognitive/behavioral status at discharge: oriented Functional status at discharge: independent ambulation Time Spent with Patient Time spent: Greater than 30 minutes Exam Vital Signs (past 8 hours): - 04/03/19 05:23 04/03/19 09:00 Temperature 98.7 F 97.9 F Pulse Rate 96 H 78 Respiratory Rate 18 14 Blood Pressure 109/73 103/59 L Pulse Oximetry 99 99 Oxygen Delivery Method Room Air Oxygen Flow Rate 0 Narrative Exam Narrative: GENERAL APPEARANCE: Well developed, well nourished, in no acute distress. SKIN: Inspection of the skin reveals no rashes, ulcerations or petechiae. HEENT: The sclerae were anicteric and conjunctivae were pink and moist. Extraocular movements were intact and pupils were equal, round with normal accommodation. External inspection of the ears and nose showed no scars, le sions, or masses. Lips, teeth, and gums showed normal mucosa. The oral mucosa, hard and soft palate, tongue and posterior pharynx were unremarkable. NECK: Supple and symmetric. There was no thyroid enlargement, and no tenderness, or masses were felt. CHEST: Normal AP diameter and normal contour without any kyphoscoliosis. LUNGS: Auscultation of the lungs revealed no wheezes, rhonchi, or rales. CARDIOVASCULAR: There was a regular rate and rhythm without any murmurs, gallops, rubs. Peripheral pulses were 2+ and symmetric. ABDOMEN: Soft and nontender with normal bowel sounds. No ascites was noted. MUSCULOSKELETAL: There was no tenderness or effusions noted. Muscle strength and tone were normal. EXTREMITIES: No cyanosis, clubbing or edema. NEUROLOGIC: Alert and oriented x 3. Normal affect. Gait was normal. Strength is +5/5 in the Upper Extremities and Lower Extremities Bilaterally. Sensation to touch was normal. Objective Labs Result Diagrams: 04/03/19 05:30 04/03/19 09:18 Labs: Laboratory Results - last 24 hr 04/02/19 04/03/19 04/03/19 13:45 05:30 09:18 WBC 13.1 H RBC 3.96 L Hgb 11.7 L Hct 34.1 L MCV 86.1 MCH 29.5 MCHC 34.2 RDW 14.5 Plt Count 528 H Neut % (Auto) 52.0 Lymph % (Auto) 37.4 [place] % (Auto) 7.6 Eos % (Auto) 2.3 Baso % (Auto) 0.7 Neut # (Auto) 6800 Lymph # (Auto) 4900 H [place] # (Auto) 1000 H Eos # (Auto) 300 Baso # (Auto) 100 Sodium 137 138 Potassium 3.7 3.5 Chloride 99 104 Carbon Dioxide 27 23 BUN 13 10 Creatinine 1.00 0.90 Estimated GFR > 60.0 > 60.0 BUN/Creatinine Ratio 13.0 11.1 Glucose 94 93 Calcium 8.8 9.1 Discharge Plan Discharge Plan Patient Disposition: Home Discharge Med Rec/Prescriptions Prescriptions: New ciprofloxacin HCl 500 mg tablet 500 mg PO BID 2 Days Qty: 4 RF: 0 potassium chloride 20 mEq tablet extended release 20 meq PO BID 30 Days Qty: 60 RF: 0 lorazepam 1 mg Tablet 1 mg PO Q4HR PRN (Reason: Anxiety) 7 Days Qty: 15 RF: 0 ondansetron 4 mg tablet,disintegrating 4 mg PO Q8H PRN (Reason: nausea and vomiting) 4 Days Qty: 10 RF: 0 Continued fluoxetine 10 mg capsule 10 mg PO DAILY RF: 0 Visit Report/Discharge Packet Instructions: Potassium, Ondansetron, Lorazepam, DI for Colitis, Ciprofloxacin (By mouth) Quality VTE Deep Vein Thrombosis/Pulmonary Embolism Present on Admission: No
--- NOTE | 2019-04-03 13:15 | PC.NURSE ---
1300- D/c packet and education provided to pt. Sister at bedside present. Reviewed disease process, f/u, when to seek emergency medical treatment. Provided rx and education re indication, dose, schedule, side effects. Pt and sister verbalize understanding. All belongings gathered and sent with pt for d/c. Pt transferred independently to w/c and left in no acute distress at 1300. MELTING OPERATOR escorted to V.
== END 2019-04-03 13:00 | disposition home or self-care (01) | DRG 248 ==
LOC: ED 03-31 01:12 → AC 03-31 01:14
PROVIDERS: Internal Medicine; Admitting Provider Nurse Practitioner Adult Health; Emergency Provider Emergency Medicine; Visit Provider Nurse Practitioner Adult Health
DX: A04.0 Enteropathogenic Escherichia coli infection (principal); E43 Unspecified severe protein-calorie malnutrition; N17.9 Acute kidney failure, unspecified; E86.0 Dehydration; E87.1 Hypo-osmolality and hyponatremia; E87.6 Hypokalemia; F43.10 Post-traumatic stress disorder, unspecified; Z68.1 Body mass index [BMI] 19.9 or less, adult; Z43.4 Encounter for attention to other artificial openings of digestive tract
CPT/HCPCS: 36415; 36591; 74177; 80048; 80053; 81001; 81003; 81025; 83690; 83735; 84145; 84703; 85025; 87507; 87633; 96361; 96374; 96375; 99283; 99285; C9113; J0744; J1650; J2270; J2405; J3480; Q9967